=== PATIENT | male | born 1960 | race Caucasian/White ===

== ENCOUNTER 2023-10-05 01:08 | Day surgery (SDC) | payer OTHER, SELFPAY ==
[2023-10-04 15:27] VITALS: BMI 31.8
--- NOTE | 2023-10-04 15:38 | PC.NURSE ---
Report to the Outpatient Waiting Room, entrance under the green pavilion located off [facility], at 1130 on 10/04/23. Planned Procedure Time: 1330. Time changes happen often and if your time is changed the preop area will call you the afternoon before. - You and your visitor will be asked to self-screen and do not enter if you have any COVID symptoms. - A mask is optional within the hospital at this time. Patients may have clear liquids (water, carbonated beverages, clear teas, apple juice) until 3 hours prior to surgery with a maximum of 20 ounces. - No food from midnight until time of surgery Take the following medications with a SIP of water the morning of surgery:n/a DO NOT STOP ANY OF YOUR OTHER PRESCRIPTION MEDICATIONS PRIOR TO SURGERY ?EXCEPT THE FOLLOWING Medications to discontinue per physician n/a Date to take last dose n/a Please no make-up, nail serbian, hairspray, perfume, deodorant, or body powder the day of surgery. No jewelry (including any body piercings) or valuables the day of surgery, leave them at home. Please take a shower or bath the night before, or the morning of, surgery with an antibacterial soap. Wear comfortable, loose fitting clothing. - Jewelry must be removed prior to entering the operating room. Rings and piercings that are not removed may be cut off. - The hospital will not accept responsibility for valuables. - Please leave all valuables, including medications, at home the day of surgery. If you are going home after surgery, a licensed shuttle truck driver must drive you home. - NO public transportation without another adult if you receive anesthesia. - We recommend that an adult stay with you for 24 hours following discharge. - We also recommend that you do not drive, make important decision, drink alcoholic beverages, or take any drugs that were not prescribed by your health care provider for at least 24 hours after your discharge time. Follow any additional instructions given to you from your surgeon. If you or anyone in your household have experienced Covid symptoms in the past week, please notify your surgeon or the nurse liaison at the phone number below for possible testing. Telephone instructions given to patient and asked if any additional questions and then verbalized understanding. Patient advised to call surgeon office or pre surgery nurse liaison [phone] if any additional questions.
[2023-10-05] VITALS (12 sets, daily range): BP systolic 129–173; BP diastolic 66–92; PULSE 83–97; RESP 12–20; TEMP 36.2–36.3; O2SAT 93–99; BMI 30.6
[2023-10-05] MEDS: LACTATED RINGERS 1,000 ML 30 ML IV CONT ×2 (11:25→14:25)
--- NOTE | 2023-10-05 11:31 | WPDHPUPDATE1 ---
History and Physical Update Update Date/Time: 10/05/23 11:31 History and Physical has been reviewed, including an updated exam of the patient. There are NO changes in the patient's condition. Risks, benefits, and alternatives have been discussed and questions answered. Patient agrees to proceed with procedure.
[2023-10-05] MEDS: ACETAMINOPHEN 500 MG TABLET 1000 MG PO (11:48)
[2023-10-05] MEDS: KETOROLAC 15 MG/ML VIAL (*BKC) IV PUSH (11:49)
--- NOTE | 2023-10-05 12:30 | P.PNAN_ITS ---
Anes - Initial Pre Proc Eval Procedure: Operation Date: 10/05/23 13:30 Proposed Procedures p Robotic Repair Incarcerated Umbilical Hernia with Mesh - Katty Rodrigez MD Date/Time: 10/05/23 12:30 Surgeon: Katty Rodrigez MD Pre Op Diagnosis: Incar Umb Hernia Patient Data Age: 63 Gender: M Height: 1.75 m Weight: 94 kg Last Vital Signs Temp 97.3 F L 10/05/23 11:05 Pulse 88 10/05/23 11:05 Resp 14 10/05/23 11:05 BP 173/92 H 10/05/23 11:05 Pulse Ox 99 10/05/23 11:05 O2 Del Method Room Air 10/05/23 11:05 Allergies Allergy/AdvReac Type Severity Reaction Status Date / Time No Known Allergies Allergy Verified 10/05/23 11:58 Home Medications Medication Instructions Recorded Confirmed Type sildenafil 100 mg tablet See Rx Instructions PO DAILY PRN 08/16/23 10/04/23 Rx sexual activity #6 tabs hydrocodone 5 mg-acetaminophen 325 1 tablet PO Q6H PRN pain #30 tabs 09/21/23 10/04/23 Rx mg tablet Laboratory Tests 10/05/23 11:29 Blood Type A Positive Antibody Screen Pending Patient hx anesthesia problems: none Family hx anesthesia problems: none Results Review: All pre-operative results and documents have been reviewed as part of the pre- operative evaluation. FOR[facility]LY [facility], [facility] Family History Family History Other Diabetes mellitus Family history of allergic disorder Family history of malignant neoplasm Social History Social History Smoking status: Never smoker Second hand tobacco smoke exposure: No Alcohol intake: former Substance use: current Substance use type: marijuana Living arrangements: with family Occupation/Education: occupation Gender identity (if verbalized by the patient): Male Spiritual care concerns: No Agree to blood products: Yes Anes - Eval Final PreProcedure Day of Procedure 10/05/23 12:30 Patient weight: obese Heart: regular rate and rhythm Lungs: clear to auscultation Airway: Mallampati scale class II Neurological: alert and oriented Last oral intake: >/= 8 hours ASA classification: II Emergent: no Anesthetic plan: proceed Anesthesia type and monitoring: general ETT and standard monitoring Results Review: All pre-operative results and documents have been reviewed as part of the pre- operative evaluation. Informed Consent: The patient's anesthetic plan and its attendant risks and benefits were discussed with the patient/family/POA. Questions were solicited and answers provided to the satisfaction of the patient/family/POA.
[2023-10-05] MEDS: ceFAZolin 2 GM/D5W 50 ML 2 GM/50 ML BAG IVPB (12:42)
[2023-10-05] MEDS: BUPIVACAINE/EPINEPHRINE 0.5% 10 ML VIAL 30 ML INFILTRATE (13:34)
--- NOTE | 2023-10-05 14:15 | W.PM.PROC2 ---
Procedure Note - Detailed Date of Procedure 10/05/23 Pre-op Diagnosis Incarcerated umbilical hernia Post-op Diagnosis Same Procedure Performed Robotic assisted repair incarcerated umbilical hernia with defect measuring 3.5 cm Surgeon Katty Rodrigez MD Anesthesia General Indications 63-year-old male presenting to the office with a moderate-sized incarcerated umbilical hernia Findings 3.5 cm umbilical hernia with incarcerated loop of small intestine Description of Procedure The patient was taken the operating room placed in the supine position. After adequate induction of general anesthesia, the patient was prepped and draped in normal sterile fashion. A time-out was then done to verify the patient's identity as well as the procedure being performed. I began by making a 8 mm incision in the left upper quadrant. Through this, a Veress needle was placed into the peritoneal cavity and CO2 gas was insufflated. After adequate pneumoperitoneum was achieved, a 8 mm trocar was placed through this incision. I then placed the laparoscope through this trocar site and under direct visualization I placed a 8 mm port in the left mid abdomen as well as an additional 8 mm port in the left lower abdomen. The robot was then docked to the 3 port sites. I then went to the robotic console. I began by identifying the hernia. A moderate-sized incarcerated umbilical hernia was noted. This hernia was noted to contain a loop small intestine. Using very careful dissection, was able to reduce the incarcerated contents. Upon reduction, a moderate amount of fluid was noted within the hernia sac consistent with chronic incarceration. There was a small serosal tear noted in the small intestine. I went ahead and closed this serosal tear with interrupted 3-0 silk suture. I then closed the approximately 3.5 cm defect with 0 strata fix suture. I then placed a 15 x 10 cm Ventralight mesh into the abdominal cavity. The positional stitch was placed in the middle of the mesh and brought up centering the mesh over the defect. Once this was done, I used 2 O V lock suture to suture the mesh to the abdominal wall. Once the mesh was sutured in, I was happy with our tension-free repair. The mesh was noted to have good overlap of the defect. At this point, the robot was undocked and all ports were removed. All port sites were then closed with 4 O Monocryl subcuticular suture. The patient tolerated the procedure well, is extubated in the operating room postoperative, and will be transferred to the recovery room in stable condition. Implants 15 x 10 cm Ventralight mesh Estimated Blood Loss 10 Drains No Packing No Pathology None sent Complications No immediate complications Condition Stable Disposition PACU [facility] Billing Surgery - Charge Forward: Surgery Billing
--- NOTE | 2023-10-05 14:46 | SUR.PHASEI ---
Simple mask removed at 1445.
[2023-10-05] MEDS: fentaNYL CITRATE INJ (*CRX) 100 MCG/2 ML VIAL 25 MCG IV PUSH ×8 (14:48→17:08)
[2023-10-05] MEDS: oxyCODONE HCL (*CRX) 5 MG TAB IR PO (15:40)
--- NOTE | 2023-10-05 17:13 | SUR.PHASEII ---
PATIENT HAS PAIN 7/10 WHEN SITTING UP/STANDING.
[2023-10-05] MEDS: HYDROmorphone HCL INJ (*CRX) 1 MG/ML SYR 0.5 MG IV PUSH (17:33)
--- NOTE | 2023-10-05 17:39 | SUR.PHASEII ---
PATIENT HAS STOOD UP 3 TIMES BUT HAS SEVERE PAIN; DILAUDID GIVEN.
== END 2023-10-05 17:53 | disposition home or self-care (01) ==
PROVIDERS: PCP Family Medicine Adolescent Medicine; Visit Provider Surgery
PROC: (CPT 49594; principal; 2023-10-05 13:30)
DX: K42.0 Umbilical hernia with obstruction, without gangrene (principal); F12.90 Cannabis use, unspecified, uncomplicated; E66.9 Obesity, unspecified; Z68.30 Body mass index [BMI] 30.0-30.9, adult
CPT/HCPCS: 49594; S2900; 36415; 86850; 86900; 86901; A9270; C1781; J0690; J1100; J1170; J1885; J2250; J2405; J2704; J3010; J7120